=== PATIENT | female | born 1980 | race Caucasian/White ===

== ENCOUNTER 2019-09-29 14:41 | Emergency (ER) | payer SELFPAY ==
[~2019-09-29] VITALS: Ht 167.6 cm; Wt 81.8 kg
[2019-09-29] MEDS ORDERED: ACET-2247 PO (14:46)
[2019-09-29] MEDS ORDERED: PHEN-748 PO (14:46)
[2019-09-29 16:12] VITALS: BP 136/80
== END 2019-09-29 16:47 | disposition home or self-care (01) ==
LOC: EMS 14:44
DX: Z11.59 Encounter for screening for other viral diseases (principal); B34.9 Viral infection, unspecified; F17.210 Nicotine dependence, cigarettes, uncomplicated; F12.90 Cannabis use, unspecified, uncomplicated
CPT/HCPCS: 87635; 99406